=== PATIENT | female | born 1940 | race Caucasian/White ===

== ENCOUNTER → 2017-11-10 | Outpatient (CLI) | payer MEDICARE, OTHER ==
[~2017-11-10] MED LIST: ALLO100 PO; AMLO5 PO; ASPI81CH PO; ASPI81EC PO; Amaryl2 MG PO; Azor 10-40 MG1 EACH PO; CHOL10002 PO; CYAN1000I IM; ENOX40I SC; ERGO400 PO; ERGO50000 PO; FENO160 PO; FENO67 PO; FERR325 PO; Ferrous Glucon324 M1 PO; Ferrous Glucon324 MG PO; Flonase 0.05% N16 GM; GLIM2 PO; HYDCHL12.5 PO; HYDCHL25 PO; HYDMOR2 PO; INSULANPEN SC; IRON PO; LEVSOD100 PO; LIOT25 PO; LISI20 PO; LOSA50 PO; MAGCHL64ER PO; MAGOXI400 PO; METO100ER PO; PANT40 PO; ROSU10TA PO; ROSU5 PO; SPIR25 PO; Voltaren100 GM TOP
== END | disposition home or self-care (01) ==
LOC: LAB 11:40 → LAB SHORT 11:40
PROVIDERS: Internal Medicine
DX: R19.7 Diarrhea, unspecified (principal)
CPT/HCPCS: 87015; 87045; 87046; 87205; 87328; 87329; 87493; 87899

== ENCOUNTER 2018-01-05 09:39 | Day surgery (SDC) | payer MEDICARE, OTHER ==
[~2018-01-05] VITALS: Ht 157.5 cm; Wt 71.6 kg
== END 2018-01-05 12:43 | disposition home or self-care (01) ==
LOC: ORSCSDS 09:39
PROVIDERS: Internal Medicine Gastroenterology
PROC: 0DBK8ZX Excision of Ascending Colon, Via Natural or Artificial Opening Endoscopic, Diagnostic (ICD-10-PCS; principal; 2018-01-05 11:00)
PROC: 0DJ08ZZ Inspection of Upper Intestinal Tract, Via Natural or Artificial Opening Endoscopic (ICD-10-PCS; principal; 2018-01-05 11:00)
PROC: 0DBL8ZX Excision of Transverse Colon, Via Natural or Artificial Opening Endoscopic, Diagnostic (ICD-10-PCS; principal; 2018-01-05 11:00)
DX: Z12.11 Encounter for screening for malignant neoplasm of colon (principal); R10.11 Right upper quadrant pain; D12.2 Benign neoplasm of ascending colon; D12.3 Benign neoplasm of transverse colon; K57.30 Diverticulosis of large intestine without perforation or abscess without bleeding; K22.2 Esophageal obstruction; K44.9 Diaphragmatic hernia without obstruction or gangrene; Z86.010 Personal history of colon polyps; E66.9 Obesity, unspecified; E11.9 Type 2 diabetes mellitus without complications; Z68.30 Body mass index [BMI] 30.0-30.9, adult; Z87.891 Personal history of nicotine dependence; Z79.4 Long term (current) use of insulin; Z79.82 Long term (current) use of aspirin; Z79.899 Other long term (current) drug therapy
CPT/HCPCS: 82947; J7120

== ENCOUNTER → 2018-05-27 | Outpatient (CLI) | payer MEDICARE, OTHER ==
[~2018-05-27] MED LIST changes: +ACET120S PO; +ATOR40TA PO; +Advair Hfa 230-12 GM INH; +CEPH500 PO; +CLOP75 PO; +DICLOFONO2.5 GM TOP; +FAMO10 PO; +FAMO20 PO; +FIBER GUMMIES1 EACH PO; +FURO20 PO; +METO50ER PO; +OMEPRAZOLE MAGN20 MG PO; +SERT50 PO
[2018-05-27 17:39] LABS: Source, Urine Clean Catch
[2018-05-27 18:16] LABS: Appearance, Urine Hazy (Clear); Bilirubin, Urine Neg (Neg); Blood, Urine Neg (Neg); Color, Urine Yellow (P-Yellow); Glucose Qualitative, Urine 2+ (Neg); Ketones, Urine 1+ (Neg); Leukocyte Esterase, Urine 1+ (Neg); Nitrite, Urine Neg (Neg); Protein, Urine 4+ (Neg); Specific Gravity, Urine 1.025 (1.003-1.022); Urobilinogen, Urine NORM (Normal)
[2018-05-27 18:30] LABS: Bacteria Few /hpf; Red Blood Cells, Urine 0-2 /hpf (0-2); Squamous Epithelial Cells Many /hpf (Few)
== END | disposition home or self-care (01) ==
LOC: LAB 17:37 → LAB SHORT 17:37
PROVIDERS: Internal Medicine
DX: N39.0 Urinary tract infection, site not specified (principal)
CPT/HCPCS: 81001; 87086

== ENCOUNTER 2018-06-29 14:36 | Emergency (ER) | payer MEDICARE, OTHER ==
[~2018-06-29] VITALS: Ht 157.5 cm; Wt 65.8 kg
[~2018-06-29 14:36] MED LIST changes: -CEPH500 PO
[2018-06-29 16:02] LABS: BASOPHILS ABSOLUTE AUTO 0.02 K/mm3 (0.00-0.23); BASOPHILS PERCENT AUTO 0 % (0-2); EOSINOPHILS ABSOLUTE AUTO 0.02 K/mm3 (0.00-0.68); EOSINOPHILS PERCENT AUTO 0 % (0-6); Hematocrit 33.2 % (33.0-51.0); Hemoglobin 10.6 g/dL (11.5-16.0); IMMATURE GRAN ABSOLUTE AUTO 0.04 K/mm3 (0.00-0.10); IMMATURE GRAN PERCENT AUTO 1 % (0-1); LYMPHOCYTES ABSOLUTE AUTO 0.37 K/mm3 (0.84-5.20); LYMPHOCYTES PERCENT AUTO 5 % (21-46); MONOCYTES ABSOLUTE AUTO 0.86 K/mm3 (0.16-1.47); MONOCYTES PERCENT AUTO 12 % (4-13); Mean Corpuscular HGB 31.3 pg (26.0-34.0); Mean Corpuscular HGB Conc 31.9 g/dL (31.5-36.5); Mean Corpuscular Volume 98 fL (80-100); Mean Platelet Volume 11.1 fL (9.1-12.4); NEUTROPHILS ABSOLUTE AUTO 5.98 K/mm3 (1.96-9.15); NEUTROPHILS PERCENT AUTO 82 % (41-73); Platelet Count 156 K/mm3 (150-400); RDW Coefficient Variation 12.3 % (11.7-14.2); RDW Standard Deviation 44.5 fL (35.1-46.3); Red Blood Cell Count 3.39 M/mm3 (3.80-5.20); White Blood Cell Count 7.29 K/mm3 (4.00-11.30)
[2018-06-29 16:23] LABS: Albumin, Blood 2.8 g/dL (3.4-5.0); Albumin/Globulin Ratio 0.6 (0.8-1.8); Bilirubin, Total 0.6 mg/dL (0.1-1.0); Bun/Creatinine Ratio 25.8 (12.0-20.0); Calcium, Blood 8.8 mg/dL (8.5-10.1); Creatinine, Blood 2.17 mg/dL (0.40-1.00); Globulin, Blood 4.5 g/dL (2.2-4.0); Magnesium, Blood 2.4 mg/dL (1.6-2.4); Potassium, Blood 4.1 mmol/L (3.5-5.5); Total Protein, Blood 7.3 g/dL (6.4-8.2)
[2018-06-29 20:24] LABS: Source, Urine Clean Catch
[2018-06-29 20:28] LABS: Appearance, Urine Hazy (Clear); Bilirubin, Urine Neg (Neg); Blood, Urine 3+ (Neg); Color, Urine Yellow (P-Yellow); Glucose Qualitative, Urine Neg (Neg); Ketones, Urine 1+ (Neg); Leukocyte Esterase, Urine 2+ (Neg); Nitrite, Urine Neg (Neg); Protein, Urine 4+ (Neg); Specific Gravity, Urine 1.015 (1.003-1.022); Urobilinogen, Urine NORM (Normal)
[2018-06-29 20:42] LABS: Bacteria Mod /hpf; Red Blood Cells, Urine 0-2 /hpf (0-2); Squamous Epithelial Cells Few /hpf (Few)
[2018-06-29] MEDS ORDERED: CEPH500 PO (22:47)
== END 2018-06-29 23:52 | disposition home or self-care (01) ==
LOC: ER 14:36
PROVIDERS: Emergency Medicine; Physician Assistant
DX: N39.0 Urinary tract infection, site not specified (principal); Z88.6 Allergy status to analgesic agent; Z79.899 Other long term (current) drug therapy; Z79.4 Long term (current) use of insulin; E11.9 Type 2 diabetes mellitus without complications; I10 Essential (primary) hypertension; E78.00 Pure hypercholesterolemia, unspecified; Z87.891 Personal history of nicotine dependence
CPT/HCPCS: 36415; 71046; 80053; 81001; 83690; 83735; 85025; 87077; 87086; 87186; 93005; 93010; 96365; 99285-25; J0696; J7030

== ENCOUNTER → 2018-07-13 | Outpatient (CLI) | payer MEDICARE, OTHER ==
[~2018-07-13] MED LIST changes: +CEPH500 PO
[2018-07-13 14:28] LABS: Source, Urine Clean Catch
[2018-07-13 17:23] LABS: Appearance, Urine Clear (Clear); Bilirubin, Urine Neg (Neg); Blood, Urine 1+ (Neg); Color, Urine Yellow (P-Yellow); Glucose Qualitative, Urine Neg (Neg); Ketones, Urine Neg (Neg); Leukocyte Esterase, Urine Neg (Neg); Nitrite, Urine Neg (Neg); Protein, Urine 3+ (Neg); Urobilinogen, Urine NORM (Normal)
[2018-07-13 17:44] LABS: Bacteria Few /hpf; Squamous Epithelial Cells Few /hpf (Few)
== END | disposition home or self-care (01) ==
LOC: LAB SHORT 14:25 → LAB 14:25
PROVIDERS: Internal Medicine
DX: N39.0 Urinary tract infection, site not specified (principal)
CPT/HCPCS: 81001; 87077; 87086; 87186

== ENCOUNTER 2019-01-15 17:32 | Observation (INO) | payer MEDICARE, OTHER ==
[~2019-01-15] VITALS: Ht 157.5 cm; Wt 61.2 kg
[~2019-01-15 17:32] MED LIST changes: -ATOR40TA PO; -CLOP75 PO; -FAMO20 PO; -Flonase 0.05% N16 GM; -INSULANPEN SC; -METO50ER PO
[2019-01-15 18:11] LABS: BASOPHILS ABSOLUTE AUTO 0.01 K/mm3 (0.00-0.23); BASOPHILS PERCENT AUTO 0 % (0-2); EOSINOPHILS ABSOLUTE AUTO 0.02 K/mm3 (0.00-0.68); EOSINOPHILS PERCENT AUTO 0 % (0-6); Hematocrit 30.1 % (33.0-51.0); IMMATURE GRAN ABSOLUTE AUTO 0.04 K/mm3 (0.00-0.10); IMMATURE GRAN PERCENT AUTO 1 % (0-1); LYMPHOCYTES ABSOLUTE AUTO 0.62 K/mm3 (0.84-5.20); LYMPHOCYTES PERCENT AUTO 8 % (21-46); MONOCYTES ABSOLUTE AUTO 1.47 K/mm3 (0.16-1.47); MONOCYTES PERCENT AUTO 19 % (4-13); Mean Corpuscular HGB 32.3 pg (26.0-34.0); Mean Corpuscular HGB Conc 33.2 g/dL (31.5-36.5); Mean Corpuscular Volume 97 fL (80-100); Mean Platelet Volume 11.2 fL (9.1-12.4); NEUTROPHILS ABSOLUTE AUTO 5.69 K/mm3 (1.96-9.15); NEUTROPHILS PERCENT AUTO 73 % (41-73); Platelet Count 149 K/mm3 (150-400); RDW Coefficient Variation 12.5 % (11.7-14.2); RDW Standard Deviation 44.4 fL (35.1-46.3); White Blood Cell Count 7.85 K/mm3 (4.00-11.30)
[2019-01-15 18:13] LABS: Source, Urine Clean Catch
[2019-01-15 18:20] LABS: Albumin, Blood 2.3 g/dL (3.4-5.0); Albumin/Globulin Ratio 0.5 (0.8-1.8); Bilirubin, Total 0.6 mg/dL (0.1-1.0); Creatinine, Blood 2.61 mg/dL (0.40-1.00); Globulin, Blood 4.5 g/dL (2.2-4.0); Potassium, Blood 3.6 mmol/L (3.5-5.5); Total Protein, Blood 6.8 g/dL (6.4-8.2)
[2019-01-15 18:20] LABS: Bilirubin, Urine Neg (Neg); Blood, Urine 4+ (Neg); Glucose Qualitative, Urine Neg (Neg); Ketones, Urine 1+ (Neg); Leukocyte Esterase, Urine 3+ (Neg); Nitrite, Urine Neg (Neg); Protein, Urine 3+ (Neg); Specific Gravity, Urine 1.015 (1.003-1.022); Urobilinogen, Urine NORM (Normal)
[2019-01-15 18:42] LABS: Appearance, Urine Hazy (Clear); Color, Urine Yellow (P-Yellow)
[2019-01-15 18:45] LABS: White Blood Cells, Urine 50-100 /hpf (0-5)
[2019-01-15 18:46] LABS: Bacteria Mod /hpf; Hyaline Casts 0-2 /lpf (0-2); Squamous Epithelial Cells Few /hpf (Few)
[2019-01-15] MEDS ORDERED: INSULANPEN SC (20:15)
[2019-01-15] MEDS ORDERED: VALS80 PO ×2 (20:16→22:22)
[2019-01-15] MEDS ORDERED: FUROSEMIDE20 MG PO (20:16)
[2019-01-15] MEDS ORDERED: AMLO10 PO (20:17)
[2019-01-15] MEDS ORDERED: FAMO20 PO (20:17)
[2019-01-15] MEDS ORDERED: ATOR40TA PO (20:18)
[2019-01-15] MEDS ORDERED: CLOP75 PO (20:18)
[2019-01-15] MEDS ORDERED: METOPROLOL SUCC25 MG PO (20:19)
[2019-01-15] MEDS ORDERED: METO50ER PO (20:19)
[2019-01-15] MEDS ORDERED: LIOT25 PO (20:20)
[2019-01-15] MEDS ORDERED: LEVSOD100 PO (20:20)
[2019-01-15] MEDS ORDERED: CEPH250A PO (20:21)
[2019-01-15] MEDS ORDERED: Flonase 0.05% N16 GM (20:35)
[2019-01-15] MEDS ORDERED: VITAMIN D31000 UNIT PO (20:36)
[2019-01-15] MEDS ORDERED: FERSU300 PO (20:36)
[2019-01-15] MEDS ORDERED: MAGNESIUM400 M1 PO (20:37)
[2019-01-15] MEDS ORDERED: FIBER GUMMIES2 GM PO (20:38)
[2019-01-15] MEDS ORDERED: Advair Hfa 230-12 GM INH (22:26)
--- NOTE | 2019-01-16 03:17 | NUR ---
NOC SHIFT SUMMARY PT ADMITTED THIS NIGHT FOR ACUTE ON CHRONIC RENAL FAILURE AND UTI. SHE HAD BEEN FEELING WEAK WITH BURNING URINATION FOR THE PAST 5 DAYS OR SO. HX DM2. SHE IS PLEASANT AND COOPERATIVE WITH CARE. AAOX4. DAUGHTER CAME TO FLOOR WITH HER TO HELP WITH INTAKE AND LEFT SHORTLY AFTER INTAKE FINISHED. PT WENT TO SLEEP SHORTLY AFTER INTAKE FINISHED AND HAS SLEPT WELL THROUGH THE NIGHT. VSS. APPEARS IN NO ACUTE DISTRESS. WILL CONTINUE TO MONITOR.
[2019-01-16 04:43] LABS: Hematocrit 30.5 % (33.0-51.0); Hemoglobin 10.2 g/dL (11.5-16.0); Mean Corpuscular HGB 31.6 pg (26.0-34.0); Mean Corpuscular HGB Conc 33.4 g/dL (31.5-36.5); Mean Platelet Volume 10.9 fL (9.1-12.4); Platelet Count 137 K/mm3 (150-400); RDW Coefficient Variation 12.5 % (11.7-14.2); RDW Standard Deviation 43.9 fL (35.1-46.3); Red Blood Cell Count 3.23 M/mm3 (3.80-5.20); White Blood Cell Count 6.07 K/mm3 (4.00-11.30)
[2019-01-16 04:47] LABS: Mean Corpuscular Volume 94 fL (80-100)
[2019-01-16 04:59] LABS: Bun/Creatinine Ratio 31.3 (12.0-20.0); Calcium, Blood 7.9 mg/dL (8.5-10.1); Creatinine, Blood 2.14 mg/dL (0.40-1.00); Potassium, Blood 3.6 mmol/L (3.5-5.5)
[2019-01-16] MEDS ORDERED: HYDR10 PO ×2 (12:28→20:00)
--- NOTE | 2019-01-16 17:43 | NUR ---
SUMMARY: PT ADMITTED FOR ACUTE RENAL FAILURE. NO ACUTE CHANGE TODAY. VSS, A/O. SLEPT ON AND OFF TODAY. UP WITH SBA TO COMMODE, SHOWERED. IV FLUIDS INFUSING, PT DENIES ANY PAIN WITH URINATION. [facility] REC COMPLETED. WILL CTM AND REPORT TO TIMBO SHAFER.
[2019-01-17 05:46] LABS: Bun/Creatinine Ratio 31.4 (12.0-20.0); Calcium, Blood 7.8 mg/dL (8.5-10.1); Creatinine, Blood 2.04 mg/dL (0.40-1.00); Potassium, Blood 3.6 mmol/L (3.5-5.5)
--- NOTE | 2019-01-17 05:54 | NUR ---
NOC SHIFT SUMMARY PT IS PLEASANT AND COOPERATIVE WITH CARE. AAOX4. RESP ARE EVEN AND UNLABORED. SON AND GRANDDAUGHTER VISITED THIS EVENING. SHE VOICED THAT SHE WOULD LIKE DISTURBANCES MINIMIZED THIS NIGHT SHE WANTED TO SLEEP. SHE HAS SLEPT RELATIVELY WELL THIS NIGHT. VSS. PRESENTLY APPEARS IN NO ACUTE DISTRESS. WILL CONTINUE TO MONITOR.
--- NOTE | 2019-01-17 11:45 | NUR ---
PT AMBULATION PT AMBULATING IND WITH WALKER. PT STABLE. DR. SOLIZ NOTIFIED OF PT ABILITY. ROCEPHIN GIVEN EARLY PER DR. SOLIZ REQUEST. WILL CONTINUE TO MONITOR.
--- NOTE | 2019-01-17 13:33 | NUR ---
PT DISCHARGED PT DISCHARGED IN STABLE CONDITION WITH VSS. PT & SON EDUCATED ON DC INSTRUCTIONS & FOLLOW UP APPOINTMENTS. NEW MEDS FAXED TO [facility]. PT IV REMOVED & INTACT. NO FURTHER QUESTIONS FROM PT OR SON. PT WHEELED OUT BY AIDE & DRIVEN HOME BY SON.
== END 2019-01-17 13:20 | disposition home or self-care (01) ==
LOC: ER 17:32 → MEDS 17:33
PROVIDERS: Emergency Medicine; Internal Medicine; ADMIT Internal Medicine
DX: N17.9 Acute kidney failure, unspecified (principal); I12.9 Hypertensive chronic kidney disease with stage 1 through stage 4 chronic kidney disease, or unspecified chronic kidney disease; E11.22 Type 2 diabetes mellitus with diabetic chronic kidney disease; N18.9 Chronic kidney disease, unspecified; D63.1 Anemia in chronic kidney disease; K52.9 Noninfective gastroenteritis and colitis, unspecified; N39.0 Urinary tract infection, site not specified; I25.10 Atherosclerotic heart disease of native coronary artery without angina pectoris; E03.9 Hypothyroidism, unspecified; Z88.6 Allergy status to analgesic agent; Z79.899 Other long term (current) drug therapy; Z79.4 Long term (current) use of insulin; Z86.73 Personal history of transient ischemic attack (TIA), and cerebral infarction without residual deficits
CPT/HCPCS: 36415; 71046; 80048; 80053; 81001; 82947; 85025; 85027; 87077; 87086; 87186; 96361; 96365; 96366; 96372; 96374; 96375; 99285-25; G0378; J0360; J0696; J1644; J7030; J7120

== ENCOUNTER → 2019-02-08 | Outpatient (CLI) | payer MEDICARE, OTHER ==
[~2019-02-08] MED LIST changes: +AMLO10 PO; +ATOR40TA PO; +CEPH250A PO; +CLOP75 PO; +FAMO20 PO; +FERSU300 PO; +FIBER GUMMIES2 GM PO; +FUROSEMIDE20 MG PO; +Flonase 0.05% N16 GM; +HYDR10 PO; +INSULANPEN SC; +MAGNESIUM400 M1 PO; +METO50ER PO; +METOPROLOL SUCC25 MG PO; +VALS80 PO; +VITAMIN D31000 UNIT PO
== END | disposition home or self-care (01) ==
LOC: LAB 16:02 → LAB SHORT 16:02
DX: Z01.419 Encounter for gynecological examination (general) (routine) without abnormal findings (principal)

== ENCOUNTER → 2019-02-15 | Outpatient (CLI) | payer MEDICARE, OTHER ==
[2019-02-15 12:03] LABS: Source, Urine Clean Catch
[2019-02-15 18:43] LABS: Bilirubin, Urine Neg (Neg); Blood, Urine 1+ (Neg); Glucose Qualitative, Urine Neg (Neg); Ketones, Urine Neg (Neg); Leukocyte Esterase, Urine 2+ (Neg); Nitrite, Urine Neg (Neg); Protein, Urine 3+ (Neg); Specific Gravity, Urine 1.015 (1.003-1.022); Urobilinogen, Urine NORM (Normal)
[2019-02-15 18:57] LABS: Appearance, Urine Clear (Clear); Color, Urine Yellow (P-Yellow)
[2019-02-15 18:58] LABS: Red Blood Cells, Urine 0-2 /hpf (0-2); Squamous Epithelial Cells Many /hpf (Few)
[2019-02-15 18:59] LABS: Bacteria Many /hpf
== END | disposition home or self-care (01) ==
LOC: LAB SHORT 11:59 → LAB 11:59
PROVIDERS: Internal Medicine
DX: R31.29 Other microscopic hematuria (principal)
CPT/HCPCS: 81001; 87077; 87086; 87186; 88108

== ENCOUNTER → 2019-02-19 | Outpatient (CLI) | payer MEDICARE, OTHER ==
[2019-02-19 12:36] LABS: Source, Urine Clean Catch
[2019-02-19 17:22] LABS: Bilirubin, Urine Neg (Neg); Blood, Urine 1+ (Neg); Glucose Qualitative, Urine 1+ (Neg); Ketones, Urine Neg (Neg); Leukocyte Esterase, Urine Neg (Neg); Nitrite, Urine Neg (Neg); Protein, Urine 3+ (Neg); Urobilinogen, Urine NORM (Normal)
[2019-02-19 17:32] LABS: Appearance, Urine Clear (Clear); Color, Urine Yellow (P-Yellow)
[2019-02-19 17:33] LABS: Bacteria Few /hpf; Red Blood Cells, Urine 0-2 /hpf (0-2); Squamous Epithelial Cells Few /hpf (Few); White Blood Cells, Urine 0-2 /hpf (0-5)
== END | disposition home or self-care (01) ==
LOC: LAB SHORT 12:34 → LAB 12:34 → LAB FUT 02-18 15:05
PROVIDERS: Internal Medicine
DX: R31.29 Other microscopic hematuria (principal)
CPT/HCPCS: 81001

== ENCOUNTER → 2024-02-19 | Outpatient (CLI) | payer MEDICARE, OTHER ==
[~2024-02-19] MED LIST changes: +CYANOCOBAL1000 MCG/1 IM; +Diovan160 MG PO; +Flonase 0.05% N16 GM INH; +Keflex250 MG PO; +LEVOXYL PO; +METO25ER PO; +MOTION RELIEF25 MG PO; +VITAMIN D3 PO
[2024-02-19 14:46] LABS: Source, Urine Clean Catch
[2024-02-19 18:38] LABS: Appearance, Urine Clear (Clear); Bilirubin, Urine Neg (Neg); Blood, Urine 1+ (Neg); Color, Urine Yellow (P-Yellow); Glucose Qualitative, Urine Neg (Neg); Ketones, Urine Neg (Neg); Leukocyte Esterase, Urine 1+ (Neg); Nitrite, Urine Neg (Neg); Protein, Urine 4+ (Neg); Specific Gravity, Urine 1.015 (1.003-1.022); Urobilinogen, Urine NORM (Normal)
[2024-02-19 18:54] LABS: Bacteria Many /hpf; Squamous Epithelial Cells Mod /hpf (Few)
[2024-02-19 18:55] LABS: Granular Casts 0-2 /lpf (0); Hyaline Casts 0-2 /lpf (0-2); Transitional Epithelial Cells Few /hpf (0-Rare)
[2024-02-19 22:47] LABS: Calcium, Blood 9.2 mg/dL (8.5-10.1); Creatinine, Blood 2.06 mg/dL (0.40-1.00); Potassium, Blood 4.8 mmol/L (3.5-5.5)
== END | disposition home or self-care (01) ==
LOC: LAB SHORT 14:44 → LAB 14:44 → LAB FUT 02-16 14:50
PROVIDERS: Internal Medicine
DX: R31.29 Other microscopic hematuria (principal)
CPT/HCPCS: 36415; 80048; 81001; 87086

== ENCOUNTER → 2024-06-03 | Outpatient (CLI) | payer MEDICARE, OTHER ==
[2024-06-03 17:41] LABS: BASOPHILS ABSOLUTE AUTO 0.02 K/mm3 (0.00-0.23); BASOPHILS PERCENT AUTO 0 % (0-2); EOSINOPHILS PERCENT AUTO 2 % (0-6); Hematocrit 34.5 % (33.0-51.0); Hemoglobin 10.9 g/dL (11.5-16.0); IMMATURE GRAN ABSOLUTE AUTO 0.05 K/mm3 (0.00-0.10); IMMATURE GRAN PERCENT AUTO 1 % (0-1); LYMPHOCYTES ABSOLUTE AUTO 1.18 K/mm3 (0.84-5.20); LYMPHOCYTES PERCENT AUTO 23 % (21-46); MONOCYTES ABSOLUTE AUTO 0.49 K/mm3 (0.16-1.47); MONOCYTES PERCENT AUTO 10 % (4-13); Mean Corpuscular HGB 29.9 pg (26.0-34.0); Mean Corpuscular HGB Conc 31.6 g/dL (31.5-36.5); Mean Corpuscular Volume 95 fL (80-100); Mean Platelet Volume 10.2 fL (9.1-12.4); NEUTROPHILS PERCENT AUTO 64 % (41-73); Platelet Count 226 K/mm3 (150-400); RDW Coefficient Variation 14.2 % (11.7-14.2); RDW Standard Deviation 48.7 fL (35.1-46.3); Red Blood Cell Count 3.64 M/mm3 (3.80-5.20); White Blood Cell Count 5.04 K/mm3 (4.00-11.30)
[2024-06-03 18:00] LABS: Albumin, Blood 2.7 g/dL (3.4-5.0); Albumin/Globulin Ratio 0.6 (0.8-1.8); Bilirubin, Total 0.7 mg/dL (0.1-1.0); Bun/Creatinine Ratio 12.2 (12.0-20.0); Calcium, Blood 8.5 mg/dL (8.5-10.1); Creatinine, Blood 3.04 mg/dL (0.40-1.00); Free Thyroxine 0.76 ng/dL (0.70-1.60); Globulin, Blood 4.2 g/dL (2.2-4.0); Magnesium, Blood 2.3 mg/dL (1.6-2.4); Potassium, Blood 4.5 mmol/L (3.5-5.5); Thyroid Stimulating Hormone 47.993 uIU/mL (0.360-4.800); Total Protein, Blood 6.9 g/dL (6.4-8.2)
== END | disposition home or self-care (01) ==
LOC: LAB 17:34 → LAB SHORT 17:34
PROVIDERS: Emergency Medicine
DX: R53.83 Other fatigue (principal); Z91.148 Patient's other noncompliance with medication regimen for other reason
CPT/HCPCS: 80053; 83690; 83735; 83880; 84439; 84443; 84484; 85025